=== PATIENT | female | born 1950 | race Caucasian/White ===

== ENCOUNTER 2016-11-07 22:59 | Inpatient (IN) | payer OTHER ==
[~2016-11-07] VITALS: Ht 160 cm; Wt 93.0 kg
--- NOTE | ~2016-11-07 | ECH ---
Transthoracic Echocardiography Report (TTE) Demographics Patient Name RADHA GILBERT Date of Study 11/08/2016 Patient Number [id number] Visit Number [id number] Date of 1950 Room Number 408 Accession Number [id number] Gender Female Age 66 year(s) Referring Valentin Mixon Sleeve Bottom Feller Gely Greene Physician RDCS Physician Interpreting Ruel Burrows MD Civil Engineering Intern Physician Supervising Ordering Physician Valentin Mixon MD/MLP Nurse Stress Sample Wrapper Conclusions Summary Technically adequate exam. The estimated left ventricular ejection fraction is 60-65%. Diastolic assessment reveals Grade I diastolic dysfunction. Mild tricuspid regurgitation by color Doppler. There is mild pulmonary hypertension. The pulmonary pressure (RVSP) is 39 mmHg. Procedure Type of Study TTE procedure:Echo Complete SF. Procedure Date Date: 11/08/2016 Start: 01:25 PM Technical Quality: Adequate visualization Indications:Elevated Troponin, Hypertension and Shortness of breath. Appropriate Use Criteria: 9 Height: 63 inches Weight: 201 pounds BSA: 1.94 m Rhythm: NSR HR: 94 bpm BP: 126/65 mmHg M-Mode/2D Measurements LV Diastolic Dimension: 5.02 cm LV Systolic Dimension: 3.53 cm LV Septum Diastolic: 0.72 cm LV PW Diastolic: 0.69 cm AO Root Dimension: 2.62 cm Cardiac Output: 7.4 l/min LA Dimension: 4.1 cm Cardiac Index: 3.81 l/min*m RV Diastolic Dimension: 2.91 cm LA volume index: 31 ml/m LVOT: 1.93 cm LVOT VTI: 26.94 cm RV Base: 3.3 cm LV Stroke volume: 78.77 ml RV Mid: 1.7 cm LV Stroke volume index: 40.6 ml/m TAPSE: 2.1 cm TDI-S': 13 cm/s Doppler Measurements AV Peak Velocity: 1.8 m/s MV Peak E-Wave: 1.1 m/s AV Peak Gradient: 12.96 mmHg MV Peak A-Wave: 1.11 m/s AV Mean Gradient: 6.8 mmHg MV E/A Ratio: 1 LVOT Peak Velocity: 1.4 m/s MV P1/2t: 71.7 msec AV Area (Continuity):2.34 cm MV Deceleration Time: 256.9 msec TR Velocity:3.02 m/s MV Area (PHT): 3.07 cm TR Gradient:36.48 mmHg PV Peak Velocity: 1.22 m/s Estimated RAP:3 mmHg PV Peak Gradient: 5.92 mmHg Estimated RVSP: 39 mmHg Estimated PASP: 39.48 mmHg E' Septal Velocity: 0.08 m/s A' Septal Velocity: 0.1 m/s E' Lateral Velocity: 0.13 m/s A' Lateral Velocity: 0.15 m/s RA Area: 11.91 cm Findings Left Ventricle Normal left ventricle size and function. Diastolic assessment reveals Grade I diastolic dysfunction. Right Ventricle Normal right ventricle structure and function. Left Atrium Normal left atrial size. Right Atrium Normal right atrial size. Mitral Valve Normal mitral valve structure and function. Mild mitral regurgitation by color Doppler. Aortic Valve Normal aortic valve structure and function. Tricuspid Valve Normal tricuspid valve structure and function. Mild tricuspid regurgitation by color Doppler. There is mild pulmonary hypertension. The pulmonary pressure (RVSP) is 39 mmHg. Pulmonic Valve Normal pulmonic valve structure and function. Pericardial Effusion No evidence of pericardial effusion. Miscellaneous Visualized portions of the aortic root and ascending aorta appear normal in size. Pleural Effusion No evidence of pleural effusion. Signature
--- NOTE | ~2016-11-07 | CST ---
Cardiac Perfusion Imaging Demographics Patient Name VLADIMIR Alatorre Gender Female Patient Number [id number] Race Visit Number [id number] Ethnicity Corporate ID Room Number 408 Accession Number [id number] Height 63 inches Date of 1950 Weight 201 pounds Age 66 year(s) BSA 1.94 m Referring Physician Valentin Mixon BMI 35.61 kg/m Interpreting Physician [facility] Date of study 11/11/2016 King Danny Sanches MD Supervising MD/MLP King Danny BRAUN Technologist Donny Ward Ordering Physician Ronald Canela Stress Yanira Peter MD cost recovery technician Stress ECG Reading [facility] Nurse Cathy Mon Physician King Danny Watters The procedure was explained in detail to the patient. Risks, complications and alternative treatments were reviewed. Written consent was obtained. Medications Reviewed with Patient prior to Procedure. Procedure Procedure Type: Nuclear Stress Test:Cardiac Study SF Procedure Start time: 11/11/2016 08:55 Indications: Abnormal troponin, Family history of coronary artery disease, Hyperlipidemia and Hypertension. Risk Factors The patient risk factors include:obesity, hypercholesterolemia, hypertension and family history of premature CAD. Conclusions Summary Perfusion Images: The overall quality of the study is good. Left ventricular cavity is noted to be normal on the stress and rest studies. There is no evidence of abnormal lung activity. The right ventricle is not visualized and cannot be assessed. Stress SPECT images and Rest SPECT images demonstrate homogenous tracer distribution throughout the myocardium except for a decrease uptake in the area involving the anterior wall consistent with soft tissue attenuation. Gated SPECT imaging reveals normal myocardial thickening and wall motion. The left ventricular ejection fraction was calculated to be 66%. Impression ECG portion of stress test is clinically negative for ischemia by diagnostic criteria. Myocardial perfusion imaging is normal. The anterior wall matched defect is consistent with soft tissue attenuation. Overall left ventricular systolic function was normal without regional wall motion abnormalities. There are no previous studies for comparison . Stress Protocols Resting ECG Normal sinus rhythm. Stress Protocol:Pharmacologic Predicted HR: 156 bpm Test duration: 06:00 min ECG Findings Normal sinus rhythm. Complications Procedure complication: None. Stress Interpretation Appropriate hemodynamic response to Lexiscan. No significant ST-T wave changes with Lexiscan. ECG portion is negative for ischemia by diagnostic criteria. Imaging Results Summed scores - Summed stress score: 0 - Summed rest score: 2 - Summed difference score: -2 Stress ejection Ejection fraction:65 % EDV :86 ml ESV :30 ml Stroke volume :56 ml LV mass :128 gr Imaging Protocols Rest Stress Isotope:Tc99m Myoview IV Isotope: Tc99m Myoview IV Isotope dose:10.5 mCi Isotope dose:31.6 mCi Date:11/11/2016 06:35 Date:11/11/2016 08:55 Technique: SPECT Technique: Gated Supine SPECT Supine IV remains in place after procedure. Scan Time:45-60 minutes post Scan Time:45-60 minutes post injection injection Procedure Medications - Regadenoson (Lexiscan) 0.4 mg IV over 10-15 sec. I.V. 0.4 mg. Medical History Admission Data Admission date: 11/08/2016 Admission Time: 02:43 Hospital Status: Inpatient. Signatures
--- NOTE | 2016-11-09 04:19 | ER ---
ADMIT: 11/07/2016 RM/LOC: ER [facility] MR#: [id number] [address] [address] RADHA GILBERT [address] [place] [address] Emergency Room Report SEX: F AGE: 66 : 1950 DATE: 11/07/2016 ADDENDUM: The patient was initially seen by Chaim Fritz, physician assistant professor of chemistry, and checked out to me with results of CT angio of the chest pending. The report I received is that the patient comes in complaining primarily of constipation but just does not feel well overall. She did have a recent revision of her right knee by Dr. Falk in [place] 2 days ago. The patient is, otherwise, fairly healthy with a diagnosis of hypertension and high cholesterol with no coronary artery disease and no pulmonary issues. She does not normally wear oxygen, but when she presented to the ER, her sats were in the 70s. We did get her on supplemental oxygen and we were able to keep her sats in the mid to low 90s on 4 L. With her recent surgical history, there was obviously concern for PE and workup did include a CT angio which did not show a PE but did show findings consistent with pulmonary congestion with dilation of the pulmonary arteries suggesting pulmonary hypertension and some venous congestion. There was no PE seen, but there were findings on the right lower lung that showed what was possibly granulomatous disease and possible infectious process, but could not rule out tumor. There was some atelectasis at the base and a moderate pulmonary effusion. The patient's laboratory results show that she had a white count of 12.3, normal chemistries, lactic acid of 1.1, procalcitonin 0.21, CK of 265, CK-MB of 4.9, a troponin of 0.882. Her ABG on 2 L showed a pH 7.4, pCO2 of 42, and a PO2 of 59. She had an EKG done which was sinus rhythm, rate of 86, with some slight ST depression in V3, V4, and V5 with no ST elevation. The patient really never complained of chest pain and has no coronary artery disease history. As patient did not have a fever, was not tachycardic, and had recent surgical history, we were more concerned about PE, but once her CT scan results returned, we went ahead and ordered IV antibiotics and she received her first dose while in the Emergency Department. The patient is admitted in serious condition to Dr. Hanson's service, and I spoke to Dr. Marc Tirado, who will be writing admission orders this evening. She is admitted with a diagnosis of: 1. Hypoxemia. 2. Pneumonia. 3. Elevated troponin. 4. Shortness of breath. 5. Constipation. Allan Taylor MD/ ankit JOB #: [id number] CC: Allan Taylor MD, Attending Physician Apurva Hanson MD, Family Physician
--- NOTE | 2016-11-13 07:57 | HP ---
ADMIT: 11/08/2016 RM/LOC: 408 [facility] MR#: [id number] ACC#: [id number] [address] [address] RADHA GILBERT [address] [place], [place] [id number] History and Physical SEX: F AGE: 66 : 1950 DATE OF SERVICE: CHIEF COMPLAINT: Not feeling well. HISTORY OF PRESENT ILLNESS: The patient is a 66-year-old, white female, who underwent a right total knee arthroplasty revision by Dr. Falk in [place] on Friday. She was discharged home on Friday but was having problems even in the hospital keeping her pain medication down as the oxycodone they were giving her caused vomiting. She was sent with some Zofran, but that actually made them worse, and so she was having some persistent vomiting for a couple of days on being home. She really has not been able to eat much. Her bowels also have not moved in a week. She thought it was just a combination of those issues but really was not feeling well through the night last night and finally came into the emergency room. On arrival, she was noted to have O2 saturation in the 70s. They did put her on some oxygen and she is now at 4 L running 90%. She does not feel short of breath and denies any cough. No fevers at home. She denies any chest pain. Did get a CT angiogram in the emergency room and that was negative for PE. She states her knee pain has been better the last 24 hours and she has been getting along okay with just Tylenol. She did have preoperative evaluation last month and had an echocardiogram done at that time and labs were all normal and her vitals were stable. PAST MEDICAL HISTORY: The patient had a right total knee arthroplasty done originally here in [place] 2 years ago. She also has chronic hypertension, depression, obesity, mild constipation. She has also had a tubal ligation. Echocardiogram done, 09/18/2016, showed an EF of 65% with [id number] LVH, normal bowels, and grade 1 diastolic dysfunction. MEDICATIONS: Include: 1. Amlodipine 10 mg daily. 2. Atorvastatin 20 mg at bedtime. 3. Calcium 600 mg t.i.d. 4. Citalopram 40 mg daily. 5. Hydrochlorothiazide 25 mg daily. ALLERGIES: EFFEXOR CAUSED SKIN RASHES. FAMILY HISTORY: Her father had coronary artery disease with an WA and also had a stroke and was alcoholic. Her mother had coronary artery disease and hypertension. SOCIAL HISTORY: The patient is and lives at home with her spouse. 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 She does drink two cups of coffee daily. Has never been a smoker. No alcohol use. REVIEW OF SYSTEMS: CONSTITUTIONAL: Just generalized malaise since surgery. No fevers or chills or night sweats. HEAD: Denies any headache. ADMIT: 11/08/2016 RM/LOC: 408 [facility] MR#: [id number] [address] [place] [id number] RADHA GILBERT [facility] [place] [address] History and Physical SEX: F AGE: 66 : 1950 ENT: No vision changes. No nasal congestion or sore throat. CARDIAC: No chest pain or palpitations. RESPIRATORY: Does not feel short of breath. No cough or wheezing. GASTROINTESTINAL: Has had very poor appetite since returning home from surgery and a lot of nausea and vomiting as described above. No specific abdominal pain though. She has been quite constipated as above. GENITOURINARY: No hematuria or dysuria. NEURO: Denies any focal numbness, tingling, or weakness. PSYCH: Depression has been well controlled on her Celexa. PHYSICAL EXAMINATION: VITAL SIGNS: The patient is afebrile. Blood pressure 126/65, pulse 84, respirations 16, she is 94% on 4 L. GENERAL: She is alert and oriented x3 and in no acute distress. HEART: Regular in rate and rhythm without murmurs. Sclerae are clear. Pupils are round and reactive. Nares are patent. Oropharynx looks moist and without lesions. NECK: Supple with no lymphadenopathy. LUNGS: Sound clear to auscultation bilaterally with good air flow. No wheezes. ABDOMEN: Soft, nondistended, nontender with good bowel sounds. EXTREMITIES: Have no edema. Just postop changes to the right knee. LABORATORY DATA: BUN is 14, creatinine 0.8. She had normal LFTs with just a mildly low albumin at 3.1. Normal coags. Her CK was minimally elevated in the 200s, and her troponin was 0.882 on admission and is 0.92 this morning. EKG shows no acute changes. Hemoglobin is 10.7, procalcitonin 0.21, lactic acid 1.1. CT angiogram did show no PE. She does have right septal thickening with moderate pleural effusion on the right and bibasilar opacities. ASSESSMENT: 1. Hypoxic respiratory failure. 2. Right basilar opacities with differential including aspiration pneumonia ADMIT: 11/08/2016 RM/LOC: 408 [facility] MR#: [id number] [address] [place] [id number] RADHA GILBERT [address] [place] [address] History and Physical SEX: F AGE: 66 : 1950 or underlying malignancy. 3. Nausea and vomiting. 4. Recent right total knee arthroplasty for severe osteoarthritis. 5. Constipation. 6. Elevated troponin. 7. Hypertension. 8. Depression. 9. Obesity. PLAN: We will get Cardiology and Pulmonology involved. We started her on Levaquin and we will add some Zosyn and DuoNeb for aspiration. We will make any changes as needed based on her hospital course. Apurva Hanson MD/ ankit JOB #: [id number] CC: Apurva Hanson MD, Attending Physician Apurva Hanson MD, Family Physician
[2016-11-14] MEDS ORDERED: LIPITOR DPS20 MG PO (16:03)
[2016-11-14] MEDS ORDERED: HYDROCHLOROTHIA25 MG PO (16:03)
[2016-11-14] MEDS ORDERED: ASA325 MG PO (16:04)
[2016-11-14] MEDS ORDERED: CELEXA40 MG PO (16:04)
[2016-11-14] MEDS ORDERED: NORVASC DPS10 MG PO (16:04)
[2016-11-14] MEDS ORDERED: ZOFRAN ODT4 MG PO (16:04)
[2016-11-14] MEDS ORDERED: SENEXON8.6 MG PO (16:05)
[2016-11-14] MEDS ORDERED: CARVEDILOL3.125 MG PO (16:05)
[2016-11-14] MEDS ORDERED: VALIUM-DPS5 MG PO (16:05)
[2016-11-14] MEDS ORDERED: LEVAQUIN DPS750 MG PO (16:06)
[2016-11-14] MEDS ORDERED: ULTRAM DPS50 MG PO (16:06)
[2016-11-14] MEDS ORDERED: MIRALAX PACKET17 GM PO (16:06)
--- NOTE | 2016-11-16 10:46 | DS ---
ADMIT: 11/08/2016 RM/LOC: 629 [facility] MR#: [id number] [address] [facility] [address] [place], [place] [address] RADHA GILBERT [address] [place] [address] Discharge Summary SEX: F AGE: 66 : 1950 ADMISSION DATE: 11/08/2016 DISCHARGE DATE: 11/13/2016 FINAL DIAGNOSES: 1. Acute hypoxic respiratory failure. 2. Aspiration pneumonia. 3. Recent total knee arthroplasty revision. 4. Elevated troponin. 5. Pleural effusion. 6. Hypertension. 7. Hyperlipidemia. 8. Obesity. 9. Depression. REASON FOR ADMISSION: The patient is a 66-year-old, white female, who had just undergone a revision of a left total knee arthroplasty in [place] 48 hours prior to admission. She was discharged the day before but was not tolerating her pain medications and was having a lot of nausea and vomiting. She just started not feeling well so came to the emergency room and sats were in the 70s at that point. She was not running a fever. Denied any cough or feeling short of breath. She was admitted for further evaluation of her hypoxia. HOSPITAL COURSE: The patient did receive a CT angiogram to rule out PE given her postop total knee status, but that was negative for PE. She did have some findings suggestive of a pleural effusion and some infiltrate or mass in the lower lobe on the right. Given her recent extensive vomiting, she was started on Levaquin and Zosyn for aspiration. I did consult Dr. Hernández with pulmonology and [facility] as she had a mildly elevated troponin as well. Dr. Hernández agreed most likely aspiration pneumonia. We did do a thoracentesis and removed 400 mL of pleural fluid. Cytology on that came back negative and cultures were negative so just was felt to be more of a parapneumonic effusion. No changes were noted on her EKGs and she did end up getting a stress test while as an inpatient that was normal. She was kept and slowly weaned off oxygen while she received nebs and antibiotics. Finally on 11/13 had tolerated the night and some physical therapy sessions without oxygen and was feeling much better. Was discharged to home. DISCHARGE INSTRUCTIONS: She will resume physical therapy three days a week for the knee. Will follow up with me in about nine days. She will keep follow up with Orthopedics as well. We will follow her x-ray to resolution. DISCHARGE MEDICATIONS: ADMIT: 11/08/2016 RM/LOC: 629 [facility] MR#: [id number] [address] [address] RADHA GILBERT [address] [place] [address] Discharge Summary SEX: F AGE: 66 : 1950 1. Aspirin 325 mg daily. 2. Celexa 40 mg daily. 3. Coreg 3.125 mg b.i.d. 4. Levaquin 750 mg daily. 5. Lipitor 20 mg at bedtime. 6. MiraLAX 17 g daily. 7. Norvasc 10 mg daily. 8. Senokot S 1 tab b.i.d. 9. Ultram 50 mg tabs 1-2 every 6 hours as needed. 10.Valium 5 mg q.6 hours p.r.n. 11.Hydrochlorothiazide 25 mg daily. 12.Zofran 4 mg every 8 hours as needed. Apurva Hanson MD/ kareng JOB #: [id number] CC: Apurva Hanson MD, Attending Physician Apurva Hanson MD, Family Physician
--- NOTE | 2016-12-07 16:53 | CO ---
ADMIT: 11/08/2016 RM/LOC: 408 [facility] MR#: [id number] [address] [address] RADHA GILBERT [address] [place] [address] Consultation SEX: F AGE: 66 : 1950 DATE OF CONSULTATION: 11/08/2016 ATTENDING PHYSICIAN: Apurva Hanson MD CONSULTING PHYSICIAN: Juan Miguel Simon MD REASON FOR CONSULTATION: Elevated troponin. HISTORY OF PRESENT ILLNESS: The patient is a pleasant 66-year-old, female with no known history of coronary artery disease. She was admitted last night after right knee revision in [place]. She had surgery on Friday and was sent home on Friday. She was feeling good then but unfortunately began to have nausea, vomiting, and trouble keeping her pain medication down and therefore difficulty with pain control. She denies any shortness of breath or any chest pain. She has not had any significant lower extremity edema except for in that limb that was operated on. She denies any palpitations. When she came into the emergency room, she was found to be profoundly hypoxic. She was started on oxygen. A CTA of her chest was negative for PE, but it did show a pleural effusion. She had a mildly elevated troponin during her hospital stay. Therefore, we were asked to evaluate her. She does have a history of a normal echocardiogram in the past. MEDICATIONS: She is taking include: 1. Amlodipine 10 mg one p.o. daily. 2. Atorvastatin 20 mg one p.o. at bedtime. 3. Calcium 600 mg p.o. three times a day. 4. Citalopram 40 mg one tablet daily. 5. Hydrochlorothiazide 25 mg one tablet every 4-6 hours as needed. PAST MEDICAL HISTORY: Hypertension, hyperlipidemia, history of right total knee replacement on 04/13/2014 with a revision on 11/05/2016, history of a tubal ligation. FAMILY HISTORY: Positive for coronary artery disease and stroke and hypertension. SOCIAL HISTORY: She is . Her is here in the room. She has never smoked. She does not use any alcohol. 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 REVIEW OF SYSTEMS: A 10-point review of systems was reviewed and negative except for per HPI. PHYSICAL EXAMINATION: Per Dr. Simon: VITAL SIGNS: Temp 99.0, pulse 98, respirations 16, blood pressure 120/59, O2 saturation 91%. SKIN: Schlater, warm and dry. EYES: Sclerae clear. No xanthelasmas. ENT: Oral mucosa is pink and moist. No jugular venous distention or carotid bruits. ADMIT: 11/08/2016 RM/LOC: [address] [place] [address] MR#: [id number] [address] [place] [id number] RADHA GILBERT [facility] [place] [address] Consultation SEX: F AGE: 66 : 1950 CHEST: Respirations are even and unlabored. Lungs are clear to auscultation. HEART: Regular rate and rhythm. Normal S1, S2. No murmurs, rubs or gallops. ABDOMEN: Soft and nontender. MUSCULOSKELETAL: Gait is normal. EXTREMITIES: Right leg brace. Peripheral pulses palpable. No clubbing, cyanosis or edema. PSYCHIATRIC: Alert and oriented. Mood and affect are appropriate. DIAGNOSTIC DATA: EKG does not show any acute ST-T wave changes. Echocardiogram is pending. CTA of her chest shows no pulmonary emboli. Mild dilated pulmonary arteries may suggest pulmonary hypertension, asymmetric right lung, interlobular septal thickening, nodules, moderate pleural effusion and basilar opacities, finding could be asymmetric edema, infection/inflammation or lymphangitic tumor and cholelithiasis. UA was negative except for 9 red blood cells. Blood gases showed a corrected PO2 of 58 with a pCO2 of 42, procalcitonin was 0.21. Sodium of 139, potassium 3.7, chloride 102, carbon dioxide 29, BUN of 14, glucose 121, creatinine 0.8, calcium 8.9, magnesium of 2.1. AST and ALT were normal. Cardiac enzymes; CK of 265, 233, and 227; MB of 4.9, 4.8, and 3.7; with a troponin of 0.882, 0.950, and 0.920. ProBNP of 2050. ASSESSMENT: Per Dr. Simon: 1. Elevated troponin. 2. Pneumonia. 3. Pleural effusion. 4. Hypertension. 5. Nausea and vomiting. 6. Status post right total knee revision. PLAN: Per Dr. Simon: Her EKG shows nonspecific ST-T wave changes. Her echocardiogram is pending. I suspect her elevated enzymes are secondary to her hypoxemia. If her echocardiogram is normal, I will plan on outpatient stress test. If her echocardiogram is abnormal, we will discuss cardiac catheterization. We will continue to monitor her symptoms and diagnostics and amend our plan accordingly. Thank you for allowing us to participate in the care of this patient. JOSE RAFAEL Bloom / Juan Miguel Simon MD / ankit JOB #: [id number] CC: Apurva Hanson MD, Attending Physician Apurva Hanson MD, Family Physician
--- NOTE | 2016-12-17 13:13 | CO ---
ADMIT: 11/08/2016 RM/LOC: [facility] MR#: [id number] [facility]#: [id number] [address] [facility] [address] [place], [place] [address] RADHA GILBERT [address] [place] [address] Consultation SEX: F AGE: 66 : 1950 CORRECTED: 12/16/2016 1344 DJS DATE OF CONSULTATION: 11/08/2016 ATTENDING PHYSICIAN: Apurva Hanson MD CONSULTING PHYSICIAN: Parish Hernández MD REASON: Hypoxemia, abnormal CT scan. HISTORY OF PRESENT ILLNESS: The patient is a 66-year-old female admitted on 11/08 with hypoxemia, nausea, and vomiting. The patient has no history of coronary artery disease, congestive heart failure, lung disease asthma, or smoking. She had a right knee revision in [place] on Friday and left Friday. She began to have nausea, vomiting, and constipation the day prior to admission. She has mild cough, but no chest pain. There are no fevers, chills, or sweats. On admission to the emergency room, she had significant hypoxemia. A CT angiogram of the chest with no evidence of PE, but did show pulmonary infiltrate on the right, moderate pleural effusion, and some areas of nodularity. MEDICATIONS: Includes: 1. Amlodipine. 2. Atorvastatin. 3. Calcium. 4. Citalopram. 5. Hydrochlorothiazide. 6. Pain medications. PAST SURGERY HISTORY: Includes: 1. Right knee replacement 2013, revision 11/05/2016. 2. History of tubal ligation. 3. Hypertension. 4. Hyperlipidemia. FAMILY AND SOCIAL HISTORY: Reviewed, negative. Nonsmoker. No alcohol. REVIEW OF SYSTEMS: A 10-point review of systems except the HPI is reviewed. PHYSICAL EXAMINATION: VITAL SIGNS: Temp 99, pulse 80, respirations 12, blood pressure 130/70. She was on 4 L. Saturation 91%. HEENT: Within normal limits. NECK: No JVD. No bruits. HEART: Regular rate. LUNGS: Clear. ABDOMEN: Soft. EXTREMITIES: No edema. GENITORECTAL: Deferred. NEUROLOGICAL: Intact. ADMIT: 11/08/2016 RM/LOC: [facility] MR#: [id number] [address] [address] RADHA GILBERT [address] [place] [address] Consultation SEX: F AGE: 66 : 1950 LABORATORY TESTING: She has an elevated troponin level. Procalcitonin level is 0.21. ABG showed a pO2 of 58, with a pCO2 of 42. ProBNP was 2050. Chest CT is reviewed. IMPRESSION: 1. Hypoxemia acute-most likely secondary to aspiration pneumonitis. With multiple episodes of vomiting with nausea, I suspect she had an aspiration pneumonitis. Agree with antibiotics. 2. Some mild nodularity of the right lung. This will need close clinical follow up and if nonresolution, consider biopsy. 3. Small to moderate right pleural effusion. We will ask Interventional Radiology to do a thoracentesis. 4. Recent right knee surgery revision. 5. Elevated troponins-Cardiology to see. Echocardiogram pending. 6. Nausea and vomiting probably secondary to constipation from pain medications. 7. Status post total right knee revision. Thank you for having me see her. I have discussed the case with Dr. Hanson. Parish Hernández MD/ ankit JOB #: [id number] CC: Apurva Hanson MD, Attending Physician Apurva Hanson MD, Family Physician CORRECTED: 12/16/2016 1344 MIRZA
== END 2016-11-13 11:30 | disposition home or self-care (01) | DRG 177 ==
LOC: ER 22:59 → 6PED 11-08 02:43 → 4PCU 11-08 02:43 → 6PED 11-12 09:47
PROVIDERS: ADMIT Family Medicine
PROC: 0W993ZX Drainage of Right Pleural Cavity, Percutaneous Approach, Diagnostic (ICD-10-PCS; principal; 2016-11-08)
DX: J69.0 Pneumonitis due to inhalation of food and vomit (principal); J96.01 Acute respiratory failure with hypoxia; J91.8 Pleural effusion in other conditions classified elsewhere; Z47.1 Aftercare following joint replacement surgery; Z96.651 Presence of right artificial knee joint; I10 Essential (primary) hypertension; K59.00 Constipation, unspecified; R79.89 Other specified abnormal findings of blood chemistry; F32.9 Major depressive disorder, single episode, unspecified; E78.5 Hyperlipidemia, unspecified; E66.9 Obesity, unspecified; Z68.35 Body mass index [BMI] 35.0-35.9, adult; Z82.49 Family history of ischemic heart disease and other diseases of the circulatory system